=== PATIENT | male | born 1950 | race African-American/Black ===

== ENCOUNTER 2024-04-02 22:35 | Emergency (ER) | payer OTHER ==
[~2024-04-02] VITALS: Ht 182.9 cm; Wt 81.6 kg
[2024-04-02 23:19] LABS: BASOPHILS # (AUTO) 0.1 K/uL (0.0-0.2); BASOPHILS % (AUTO) 1.1 % (0.0-2.0); EOSINOPHILS # (AUTO) 0.2 K/uL (0.0-0.7); EOSINOPHILS % (AUTO) 3.4 % (0.0-6.0); HEMATOCRIT 22 % (39-51); HEMOGLOBIN 7.5 g/dL (13.5-17.5); LYMPHOCYTES # (AUTO) 0.5 K/uL (0.8-4.8); LYMPHOCYTES % (AUTO) 10.1 % (20.0-44.0); MEAN CORPUSCULAR HEMOGLOBIN 32 PG (26.0-33.0); MEAN CORPUSCULAR HGB CONC 34 g/dl (31.0-36.0); MEAN CORPUSCULAR VOLUME 95 fL (80-96); MONOCYTES % (AUTO) 19.1 % (2.0-12.0); NEUTROPHILS # (AUTO) 3.5 K/uL (1.8-8.9); NEUTROPHILS % (AUTO) 66.3 % (43.0-81.0); PLATELET COUNT (AUTO) 127 K/uL (150-450); RED BLOOD CELL COUNT(AUTO) 2.33 MIL/uL (4.5-6.0); RED CELL DISTRIBUTION WIDTH 17.6 % (11.5-15.0); WHITE BLOOD COUNT (AUTO) 5.3 K/uL (4.3-11.0)
[2024-04-02] MEDS ORDERED: ACETAMINOPHEN 325 MG TABLET ONE (23:36)
[2024-04-02 23:39] LABS: LACTIC ACID 0.9 mmol/L (0.4-2.0)
[2024-04-02] MEDS: ACETAMINOPHEN 325 MG TABLET PO ONE (23:40)
[2024-04-02 23:43] LABS: CALCIUM, SERUM 8.6 mg/dL (8.5-10.1); CARBON DIOXIDE 28 mmol/L (21-32); CHLORIDE 98 mmol/L (98-107); GLUCOSE 91 mg/dL (74-106); POTASSIUM 4.3 mmol/L (3.5-5.1); SODIUM SERUM 135 mmol/L (136-145); UREA NITROGEN, BLOOD 26 mg/dL (7-18)
[2024-04-02 23:48] LABS: ALANINE AMINOTRANSFERASE 16 U/L (12-78); ALBUMIN 3.2 g/dL (3.4-5.0); ALKALINE PHOSPHATASE 144 U/L (46-116); ASPARTATE AMINOTRANSFERASE 29 U/L (15-37); BILIRUBIN,TOTAL 0.6 mg/dL (0.2-1.0); CREATININE 8.8 mg/dL (0.6-1.3); NT-PRO BNP 11233 pg/mL (0-125); TOTAL PROTEIN, SERUM 8.8 g/dL (6.4-8.2)
[2024-04-03] MEDS ORDERED: AZIT250T PO (01:47)
[2024-04-03] MEDS ORDERED: CLONIDINE HCL 0.1 MG TABLET ONE (01:59)
[2024-04-03] MEDS: CLONIDINE HCL 0.1 MG TABLET PO ONE (02:06)
[2024-04-03 03:27] VITALS: BP 140/91; TEMP 99.5; O2SAT 95
[2024-04-03 06:06] LABS: EOSINOPHILS % (MANUAL) 2 % (0-4); LYMPHOCYTES % (MANUAL) 13 % (16-48); MONOCYTES % (MANUAL) 16 % (0-11.0); MYELOCYTES % 1 % (0-0); NEUTROPHILS % (MANUAL) 68 (42-76)
[2024-04-03 06:07] LABS: PLATELET ESTIMATE DECREASED
== END 2024-04-03 03:27 | disposition home or self-care (01) ==
LOC: ER 22:39
DX: J40 Bronchitis, not specified as acute or chronic (principal); I11.0 Hypertensive heart disease with heart failure; I50.9 Heart failure, unspecified; Z20.822 Contact with and (suspected) exposure to COVID-19; Z79.899 Other long term (current) drug therapy; Z60.2 Problems related to living alone
CPT/HCPCS: 36415; 71045-TC; 80053-TC; 83605-TC; 83880; 84484-TC; 85025-TC; 87040-TC